=== PATIENT | male | born 1985 | race Caucasian/White ===

== ENCOUNTER 2025-08-31 09:29 | Emergency (ER) | payer BC, SELFPAY ==
[2025-08-31 09:31] VITALS: BP 117/74
[2025-08-31 09:46] VITALS: BP 112/69
[2025-08-31 10:00] VITALS: BP 112/69
[2025-08-31 10:15] VITALS: BMI 29.7
[2025-08-31 10:41] LABS: Hematocrit 43.4 % (39.0-52.0); Hemoglobin 15.0 g/dL (13.0-18.0); Mean Corp Hgb Conc. 34.6 g/dL (33.0-37.0); Mean Corpuscular Volume 90.2 fL (80.0-94.0); Nucleated Red Blood Cells % 0 % (-); Platelet Count 259 10^3/uL (130-400); Red Cell Dist. Width 12.1 % (11.5-14.5)
[2025-08-31 10:54] LABS: ALT (SGPT) 22 U/L (0-50); AST (SGOT) 21 U/L (17-59); Albumin 4.5 g/dl (3.5-5.0); Alkaline Phosphatase 65 U/L (38-126); Blood Urea Nitrogen 16 mg/dl (9-20); Calcium 9.4 mg/dl (8.4-10.2); Carbon Dioxide 28 mmol/L (22-30); Chloride 104 mmol/L (98-107); Estimated Creatinine Clearance 119 ml/min; Glucose 92 mg/dl (70-99); Potassium 4.1 mmol/L (3.5-5.1); Sodium 137 mmol/L (135-145); Total Protein 7.0 g/dl (6.3-8.2); eGFR > 60.00
--- NOTE | 2025-08-31 10:57 | ED.GENMED ---
History of Present Illness
General
Chief Complaint: Headache
Source: patient
Exam Limitations: none
Time Seen by Provider: 08/31/25 09:45
Nursing documentation reviewed up to this point in time: agreed with
History of Present Illness
History of Present Illness:
40-year-old male with no reported chronic medical issues presents to the ER for evaluation of headache. Patient reports symptoms have been ongoing for the past week. He reports that last Monday he went to [employer] basketball game Monday night
and woke up Monday with severe frontal headache which has been persistent since. He denies any trauma or injury. He reports frontal headache associated with some fullness in the ears and sinus congestion. He denies any associated cough or
sore throat. Has not had a fever. Denies any neck pain or stiffness. Denies photosensitivity. He denies any other acute complaints. He says that he does not typically get headaches he did try some Excedrin as well as some DayQuil/NyQuil but not
anything seem to help very much which prompted him to finally come to the ER to be assessed.
Review of Systems
Review of Systems
All Other Systems: ROS reviewed and negative except as documented in HPI and ROS
Constitutional: Denies fever or chills
EENT: Reports other (Congestion, fullness in the ears); Denies sore throat
Respiratory: Denies cough or trouble breathing
Cardiac: Denies chest pain
ABD/GI: Denies abdominal pain, nausea, vomiting or diarrhea
: Denies flank pain
Musculoskeletal: Denies neck pain or back pain
Neurological: Reports headache; Denies dizzy, weakness or numbness
Phy Exam
Physical Exam
Physical Exam:
General: Awake, alert, oriented x3; no acute distress
Head: Normocephalic, atraumatic
Eyes: Conjunctiva normal, EOMI, pupils equal round and reactive to light bilaterally
Ears: TMs clear bilaterally
Throat: Airway intact, handling secretions
Neck: Trachea midline, supple without meningismus
Lungs: Clear to auscultation bilaterally, no wheezing, rales, rhonchi
Heart: Regular rate and rhythm, no murmurs, gallops, or rubs
Neuro: Cranial nerves intact 2 through 12, speech fluid without dysarthria or aphasia, no limb ataxia, motor and sensory intact in all extremities
Skin: Warm and dry
Extremities: Warm and well-perfused with no edema
Scores
Heart Failure Risk
Heart Failure Risk Score: Not Applicable
Heart Score for Chest Pain Patients
STEMI patient?: Not applicable
Withdrawal Assessment of Alcohol
Withdrawal Assessment Completed?: Not applicable
Course
Orders/Labs/Results
Orders:
Orders
08/31/25 10:10
CT Head W/o Iv Contrast Urgent
Comment:
Reason For Exam: severe frontal headache
08/31/25 10:22
COVID-19 Antigen Urgent
Source: Nasal Swab
Complete Blood Count/With Diff Urgent
Comprehensive Metabolic Panel Urgent
Influenza A+B Rapid Molecular Urgent
CORIN Source: Nasal Swab
Specimen Description:
08/31/25 11:00
Ketorolac [Toradol] 15 mg IV NOW STA
Abnormal Lab Results
08/31/25
10:22
MCH 31.2 H pg
(27.0-31.0)
08/31/25 10:22
08/31/25 10:22
Vital Signs
Initial and Last Documented VS:
Initial Vital Signs
Temp Pulse Resp BP Pulse Ox
36.4 C 86 22 117/74 96
08/31/25 09:31 08/31/25 09:31 08/31/25 09:31 08/31/25 09:31 08/31/25 09:31
Last Documented Vital Signs
Temp Pulse Resp BP Pulse Ox
36.4 C 55 12 106/73 98
08/31/25 09:31 08/31/25 12:15 08/31/25 12:15 08/31/25 12:00 08/31/25 12:15
MDM/Problems Addressed
Differential Diagnosis Includes:
Viral syndrome/sinus headache, tension headache, migraine headache, brain bleed, brain mass, dehydration
MDM/Problems Addressed:
40-year-old male with no reported chronic medical issues presents for evaluation of new onset severe headache for the past week without any prior history. No trauma reported, onset after he was at [employer] last week. Vitals and exam
are as above. Overall suspect that this is sinus headache likely picked up a virus while at [id number] game; patient is very concerned that there is severe intercranial pathology. He does report that this is an unusual symptom for him to
have even when he has a cold he has never had a headache like this before. Given his reported new headache with severe intensity will check CT of the head. Will check basic labs. Swab for COVID and flu. Trial of Toradol. Reassess after the
above.
Labs reviewed: CBC and CMP no clinically significant abnormalities. Viral swabs negative today. CT head reviewed by me no acute abnormality�awaiting final radiology report. Overall suspect that this is likely sinus headache likely triggered by
virus versus allergies. Awaiting final radiology read on CT head�if no acute abnormality can be discharged with supportive care.
*Radiology
Radiology exam reviewed: radiology read reviewed
*Pulse Oximetry
SaO2: 97
Oxygen Mode of Delivery: Room air
Patient hypoxic: no (97%)
*Critical Care Note
Total Time (30-74mins, 75-104mins- exclusive of procedures): Not Applicable
Data Reviewed
Source: patient
ED Attending Note
-
Portions of this chart may have been created with voice recognition software.� Occasional wrong word or��sound alike� substitutions may have occurred due to the inherent limitations of voice recognition software.
Discharge Plan
Departure
Patient Disposition: Home (Routine Discharge)
Date of Disposition: 08/31/25
Time of Disposition: 11:59
Patient with high blood pressure during this ER visit?: No
Discharge Problem:
Headache
Instructions: Headache, Adult (DC)
Prescriptions:
New
fluticasone propionate [Allergy Relief (fluticasone)] 50 mcg/actuation spray,suspension
1 spray intranasal DAILY Qty: 16 0RF
cetirizine [Zyrtec] 10 mg tablet
10 mg PO DAILY 7 Days Qty: 7 0RF
Referrals:
Dick Manuel DO [Family Provider, Family Practice] - Follow up in 5-7 days
Activity Restrictions/Additional Instructions:
Thank you for visiting the Emergency Department at [facility].
1. Please schedule a follow up appointment as directed. Call first thing tomorrow morning to make an appointment.
2. If indicated, please take your medications as instructed and indicated on discharge paperwork.
3. If any of your symptoms do not improve, or persist, or become more severe within 6-12 hours, please return to the emergency department for further care.
4. Please return to the emergency department if you develop a headache, neck pain/stiffness, fever greater than 100.4F, chest pain, shortness of breath, persistent nausea, vomiting, slurred speech, difficulty walking, numbness/tingling, weakness,
signs of infection or any other symptoms that are worrisome to you.
Please call [phone] if you have any questions.
Interventions
Interventions:
*Risk Screen - Suicide Last Done: 08/31/25 10:15
*General Assessment Last Done: 08/31/25 10:15
*Neglect/Abuse Screening Last Done: 08/31/25 10:15
*ED COVID-19 Vaccine History Last Done: 08/31/25 10:15
*ED Influenza Vaccine History Last Done: 08/31/25 10:15
[facility] Fall Risk Assessment Tool Last Done: 08/31/25 10:15
ED- Neurological Assessment Last Done: 08/31/25 10:15
Discharge Date and Time
Print Language: SLOVENIAN
[2025-08-31 11:00] VITALS: BP 105/72
[2025-08-31 11:16] VITALS: BP 110/68
--- NOTE | 2025-08-31 11:21 | EDRN ---
Pt informed he can drink per okay from Dr. Kumar
[2025-08-31 11:31] LABS: COVID-19 Antigen Negative (Negative)
[2025-08-31] MEDS: TORADOL 15 MG IV (11:34)
--- NOTE | 2025-08-31 11:47 | EDRN ---
Pt stating he is feeling hungry. Pt offered boxed lunch but undecided so will see if can eat if pt decides he wishes a boxed lunch when Dr. Kumar is available to ask.
[2025-08-31 12:00] VITALS: BP 106/73
--- NOTE | 2025-08-31 12:25 | EDRN ---
Pt asked about his ears and Dr. Kumar TT'd about it and was just in to address pt's question.
== END 2025-08-31 12:45 | disposition home or self-care (01) ==
LOC: EMR 09:29
PROVIDERS: EMERGENCY PHYSICIAN Emergency Medicine; FAMILY PHYSICIAN Family Medicine
DX: R51.9 Headache, unspecified (principal)
CPT/HCPCS: 99284; 96374; 70450; 80053; 85025; 87502; 87811